=== PATIENT | male | born 1985 | race Caucasian/White ===

== ENCOUNTER 2017-05-06 05:44 | Emergency (ER) | payer BC ==
[2017-05-06] MEDS ORDERED: Sodium Chloride 0.9% 10 ML Syringe FLUSH PRN (06:06)
[2017-05-06] MEDS ORDERED: Ondansetron 4 MG/2 ML SDV IVPUSH ONE (06:06)
[2017-05-06] MEDS ORDERED: HYDROmorphone 2 MG/ML SDV IVPUSH ONE (06:07)
--- NOTE | 2017-05-06 06:13 | EDM.PDOC ---
ED HPI GENERAL MEDICAL PROBLEM - General Chief Complaint: Genitourinary Problem Stated Complaint: POSS KIDNEY STONES Time Seen by Provider: 05/06/17 05:50 Source of Information: Reports: Patient, Old Records History Limitations: Reports: No Limitations - History of Present Illness INITIAL COMMENTS - FREE TEXT/NARRATIVE: Anant reports dull L flank pain yesterday, and managed with NSAIDs. At 2 am today , he awoke with sharp colicky pain overlying L flank, with some radiation into the L groin. There was nausea and vomiting. There has been no fever, chills, or sweats. He tried more NSAIDs this am without relief. There is a remote hx of nephrolithiasis x 2 in the past. - Related Data Allergies Allergy/AdvReac Type Severity Reaction Status Date / Time grapes Allergy Hives Uncoded 05/06/17 06:44 Home Meds: Home Meds NK [No Known Home Meds] 05/06/17 [History] Past Medical History - Past Health History Medical/Surgical History: Denies Medical/Surgical History Gastrointestinal History: Reports: Cholelithiasis Genitourinary History: Reports: Renal Calculus Social & Family History - Tobacco Use Smoking Status *Q: Never Smoker - Recreational Drug Use Recreational Drug Use: No ED ROS GENERAL - Review of Systems Review Of Systems: See Below Constitutional: Reports: Decreased Appetite HEENT: Reports: No Symptoms Respiratory: Reports: No Symptoms Cardiovascular: Reports: No Symptoms Endocrine: Reports: No Symptoms GI/Abdominal: Reports: Nausea, Vomiting : Reports: Flank Pain Musculoskeletal: Reports: Back Pain Skin: Reports: No Symptoms Neurological: Reports: No Symptoms Psychiatric: Reports: No Symptoms Hematologic/Lymphatic: Reports: No Symptoms Immunologic: Reports: No Symptoms ED EXAM, RENAL/ - Physical Exam Exam: See Below Exam Limited By: No Limitations General Appearance: Alert, WD/WN, Moderate Distress Throat/Mouth: Normal Inspection, Normal Oropharynx Head: Normocephalic Neck: Supple, Non-Tender, Full Range of Motion Respiratory/Chest: Lungs Clear, Normal Breath Sounds, Chest Non-Tender Cardiovascular: Regular Rate, Rhythm GI/Abdominal: Normal Bowel Sounds, Soft, Non-Tender, No Organomegaly, No Distention, No Mass (Male) Exam: No Hernia, Normal Inspection Rectal (Males) Exam: Deferred Back Exam: Normal Inspection, Other (limited tenderness below L CVA) Extremities: Normal Inspection Neurological: Alert, Oriented, CN II-XII Intact, Normal Gait, No Motor/Sensory Deficits Psychiatric: Normal Affect, Anxious Skin Exam: Warm, Dry Lymphatic: No Adenopathy Course - Vital Signs Text/Narrative:: Following assession at the [facility] ED, an IV was inserted and NS 1L, Dilaudid 2 mg IV, and Zofran 4 mg IV was administered with resolution of sxs. Subsequent labwork confirmed gross hematura with normal kidney function, and a relapse of ureterolithiasis was made. He was administered Flomax 0.4 mg po before discharge. Last Recorded V/S: Last Vital Signs Temp 36.3 C 05/06/17 06:00 Pulse 75 05/06/17 06:00 Resp 18 05/06/17 06:00 BP 142/83 H 05/06/17 06:00 Pulse Ox 100 05/06/17 06:00 - Orders/Labs/Meds Orders: Active Orders 24 hr Category Date Time Status Sodium Chloride 0.9% [Normal Saline] 1,000 ml Med 05/06/17 06:15 Active IV ASDIRECTED Sodium Chloride 0.9% [Saline Flush] Med 05/06/17 06:06 Active 10 ml FLUSH ASDIRECTED PRN Tamsulosin [Flomax] Med 05/06/17 06:53 Once 0.4 mg PO ONETIME ONE Peripheral IV Insertion Adult [OM.PC] Routine Oth 05/06/17 06:06 Ordered Medication Orders Sodium Chloride (Normal Saline) 1,000 mls @ 500 mls/hr IV ASDIRECTED MONICO Last Admin: 05/06/17 06:27 Dose: 500 mls/hr Sodium Chloride (Saline Flush) 10 ml FLUSH ASDIRECTED PRN PRN Reason: Keep Vein Open Last Admin: 05/06/17 06:28 Dose: 10 ml Labs: Laboratory Tests 05/06/17 05/06/17 05/06/17 Range/Units 05:56 06:28 06:28 WBC 8.9 (4.5-12.0) X10-3/uL RBC 5.52 (4.30-5.75) x10(6)uL Hgb 14.4 (11.5-15.5) g/dL Hct 42.5 (30.0-51.3) % MCV 77.1 L (80-96) fL MCH 26.1 L (27.7-33.6) pg MCHC 33.9 (32.2-35.4) g/dL RDW 14.9 (11.5-15.5) % Plt Count 322 (125-369) X10(3)uL MPV 8.0 (7.4-10.4) fL Neut % (Auto) 72.4 (46-82) % Lymph % (Auto) 20.5 (13-37) % [place] % (Auto) 5.7 (4-12) % Eos % (Auto) 1 (1.0-5.0) % Baso % (Auto) 1 (0-2) % Neut # (Auto) 6.5 (1.6-8.3) # Lymph # (Auto) 1.8 (0.6-5.0) # [place] # (Auto) 0.5 (0.0-1.3) # Eos # (Auto) 0.1 (0.0-0.8) # Baso # (Auto) 0.0 (0.0-0.2) # Sodium 136 (135-145) mmol/L Potassium 3.8 (3.5-5.3) mmol/L Chloride 104 (100-110) mmol/L Carbon Dioxide 22 L (23-29) mmol/L BUN 15 (5-20) mg/dL Creatinine 1.3 (0.6-1.3) mg/dL Est Cr Clr Drug Dosing TNP Estimated GFR (MDRD) > 60 (>60) BUN/Creatinine Ratio 11.5 (9-20) Glucose 133 H (80-116) mg/dL Calcium 9.0 (8.6-10.2) mg/dL Urine Color Yellow (YELLOW) Urine Appearance Cloudy (CLEAR) Urine pH 7.0 H (5.0-6.5) Ur Specific [place] 1.015 (1.010-1.025) Urine Protein Negative (NEGATIVE) mg/dL Urine Glucose (UA) Normal (NEGATIVE) mg/dL Urine Ketones Negative (NEGATIVE) mg/dL Urine Occult Blood Large H (NEGATIVE) Urine Nitrite Negative (NEGATIVE) Urine Bilirubin Negative (NEGATIVE) Urine Urobilinogen Normal (NEGATIVE) mg/dL Ur Leukocyte Esterase Negative (NEGATIVE) Urine RBC 0-5 (0) Urine WBC >100 H (0) Ur Squamous Epith Cells Rare (NS,R,O) Urine Bacteria Moderate H (NS) Meds: Medications Generic Name Dose Route Start Last Admin Trade Name Freq PRN Reason Stop Dose Admin Sodium Chloride 1,000 mls @ 500 mls/hr 05/06/17 06:15 05/06/17 06:27 Normal Saline IV 500 mls/hr ASDIRECTED MONICO Administration Sodium Chloride 10 ml 05/06/17 06:06 05/06/17 06:28 Saline Flush FLUSH 10 ml ASDIRECTED PRN Administration Keep Vein Open Discontinued Medications Generic Name Dose Route Start Last Admin Trade Name Freq PRN Reason Stop Dose Admin Hydromorphone HCl 2 mg 05/06/17 06:07 05/06/17 06:27 Dilaudid IVPUSH 05/06/17 06:08 2 mg ONETIME ONE Administration Ondansetron HCl 4 mg 05/06/17 06:06 05/06/17 06:27 Zofran IVPUSH 05/06/17 06:07 4 mg ONETIME ONE Administration Departure - Departure Time of Disposition: 07:15 Disposition: Home, Self-Care 01 Condition: Fair Clinical Impression: Ureterolithiasis - Discharge Information Referrals: Andrés Pittman MD [Primary Care Provider] - Forms: ED Department Discharge - Problem List & Annotations (1) Ureterolithiasis SNOMED Code(s): 57834090 Code(s): N20.1 - CALCULUS OF URETER Status: Acute Current Visit: Yes Annotation/Comment:: Anant improved during ED visit, and was sent home with a strainer, advised NSAIDs for pain, and follow up with PCP this afternoon with an appt at 3 pm. - Problem List Review Problem List Initiated/Reviewed/Updated: Yes - My Orders Last 24 Hours: My Active Orders 05/06/17 06:06 Sodium Chloride 0.9% [Saline Flush] 10 ml FLUSH ASDIRECTED PRN Peripheral IV Insertion Adult [OM.PC] Routine 05/06/17 06:15 Sodium Chloride 0.9% [Normal Saline] 1,000 ml IV ASDIRECTED 05/06/17 06:53 Tamsulosin [Flomax] 0.4 mg PO ONETIME ONE - Assessment/Plan Last 24 Hours: My Active Orders 05/06/17 06:06 Sodium Chloride 0.9% [Saline Flush] 10 ml FLUSH ASDIRECTED PRN Peripheral IV Insertion Adult [OM.PC] Routine 05/06/17 06:15 Sodium Chloride 0.9% [Normal Saline] 1,000 ml IV ASDIRECTED 05/06/17 06:53 Tamsulosin [Flomax] 0.4 mg PO ONETIME ONE Plan: Follow up with PCP this afternoon.
[2017-05-06] MEDS ORDERED: Sodium Chloride 0.9% 1,000 ML IV SCH (06:15)
[2017-05-06] MEDS ORDERED: Tamsulosin 0.4 MG Cap.ER PO ONE (06:53)
[2017-05-06 07:47] VITALS: BP 111/57
[2017-05-06] MEDS ORDERED: Ondansetron 4 MG Tab.DIS PO ONE (07:54)
== END 2017-05-06 08:06 | disposition home or self-care (01) ==
LOC: FB.ED 05:44
DX: N20.1 Calculus of ureter (principal); Z91.018 Allergy to other foods
CPT/HCPCS: 36415; 80048; 81001; 85025; 96361; 96374; 96375; 99284; A9270; J1170; J2405; J7040; J7050

== ENCOUNTER 2022-12-08 19:15 | Emergency (ER) | payer BC ==
[2022-12-08] MEDS ORDERED: Sodium Chloride 0.9% 10 ML Syringe FLUSH PRN (19:30)
[2022-12-08 19:51] LABS: HEMATOCRIT 43.3 % (38.3-50.1); HEMOGLOBIN 14.7 g/dL (12.9-17.7); MEAN CORPUSCULAR HGB CONC 33.9 g/dL (28.7-35.3); MEAN CORPUSCULAR VOLUME 79.6 fL (80.8-98.7); RED BLOOD CELL COUNT 5.44 x10(6)uL (3.90-5.90); RED CELL DISTRIBUTION WIDTH 14.5 % (12.4-15.0); WHITE BLOOD CELL COUNT,WBC 10.1 x10-3/uL (3.2-10.1)
[2022-12-08 19:55] LABS: BLOOD UREA NITROGEN,BUN 14 mg/dL (7-18); CALCIUM 9.5 mg/dL (8.6-10.2); CARBON DIOXIDE,CO2 25 mmol/L (21-32); CHLORIDE,CL 104 mmol/L (100-110); CREATININE 1.4 mg/dL (0.70-1.30); ESTIMATED GFR 66 mL/min (>60); GLUCOSE RANDOM 114 mg/dL (80-116); POTASSIUM,K 3.6 mmol/L (3.5-5.3); SODIUM,NA 139 mmol/L (135-145)
[2022-12-08] MEDS: Ondansetron 4 MG/2 ML SDV IVPUSH ONE (22:35)
[2022-12-08] MEDS: Ondansetron 4 MG/2 ML SDV ONE (22:36)
[2022-12-08] MEDS: HYDROmorphone 2 MG/ML SDV IVPUSH ONE (22:37)
[2022-12-08] MEDS: Sodium Chloride 0.9% 1,000 ML IV SCH (22:38)
[2022-12-08] MEDS: HYDROmorphone 2 MG/ML SDV IM ONE (22:39)
[2022-12-08 23:26] LABS: BILIRUBIN,URINE NEGATIVE (NEGATIVE); GLUCOSE,URINE NORMAL (NORMAL); KETONES,URINE 15 mg/dL (NEGATIVE); LEUKOCYTE ESTERASE,URINE NEGATIVE (NEGATIVE); NITRITE,URINE NEGATIVE (NEGATIVE); OCCULT BLOOD,URINE LARGE (NEGATIVE); PROTEIN,URINE NEGATIVE (NEGATIVE); UROBILINOGEN,URINE NORMAL (NEGATIVE)
[2022-12-08] MEDS: Tamsulosin 0.4 MG Cap.ER PO ONE (23:27)
[2022-12-08 23:29] LABS: APPEARANCE,URINE CLOUDY (CLEAR); BACTERIA,URINE RARE (NS); COLOR,URINE YELLOW (YELLOW); SQUAMOUS EPITHELIAL CELLS,UR RARE (NS,R,O); WBC,URINE 0-5 (0-5)
[2022-12-08 23:30] LABS: AMORPHOUS SEDIMENT,URINE MANY
[2022-12-09 02:15] VITALS: BP 145/101; PULSE 83
== END 2022-12-08 23:30 | disposition home or self-care (01) ==
LOC: FB.ED 19:15
DX: N13.2 Hydronephrosis with renal and ureteral calculous obstruction (principal); Z91.018 Allergy to other foods; Z87.442 Personal history of urinary calculi
CPT/HCPCS: 36415; 74176; 80048; 81001; 85027; 96361; 96374; 96375; 99284; A9270; J1170; J2405; J7030

== ENCOUNTER 2024-05-13 04:49 | Emergency (ER) | payer OTHER ==
[2024-05-13] MEDS: HYDROmorphone 2 MG/ML SDV IVPUSH ONE (05:42)
[2024-05-13] MEDS: Sodium Chloride 0.9% 1,000 ML IV ONE (05:43)
[2024-05-13 06:18] LABS: BASOPHILS PERCENT AUTO 0.4 % (0.3-3.8); EOSINOPHILS ABSOLUTE AUTO 0.1 x10-3/uL (0.0-0.6); EOSINOPHILS PERCENT AUTO 0.7 % (0.1-6.8); HEMATOCRIT 43.6 % (38.3-50.1); HEMOGLOBIN 14.9 g/dL (12.9-17.7); LYMPHOCYTES ABSOLUTE AUTO 1.3 x10-3/uL (0.5-4.5); LYMPHOCYTES PERCENT AUTO 13.6 % (15.8-45.3); MEAN CORPUSCULAR HEMOGLOBIN 27.4 pg (27.0-33.3); MEAN CORPUSCULAR HGB CONC 34.1 g/dL (28.7-35.3); MEAN CORPUSCULAR VOLUME 80.2 fL (80.8-98.7); MEAN PLATELET VOLUME 7.8 fL (6.7-11.0); MONOCYTES ABSOLUTE AUTO 0.5 x10-3/uL (0.0-1.2); NEUTROPHILS PERCENT AUTO 80.3 % (40.3-71.8); PLATELET COUNT,PLT 267 x10(3)uL (117-477); RED BLOOD CELL COUNT 5.44 x10(6)uL (3.90-5.90); RED CELL DISTRIBUTION WIDTH 14.7 % (12.4-15.0); WHITE BLOOD CELL COUNT,WBC 9.9 x10-3/uL (3.2-10.1)
[2024-05-13 06:21] LABS: BLOOD UREA NITROGEN,BUN 14 mg/dL (7-18); BUN/CREATININE RATIO 11.7 (9-20); CALCIUM 9.1 mg/dL (8.6-10.2); CARBON DIOXIDE,CO2 28 mmol/L (21-32); CHLORIDE,CL 107 mmol/L (100-110); CREATININE 1.2 mg/dL (0.70-1.30); ESTIMATED GFR 79 mL/min (>60); POTASSIUM,K 3.9 mmol/L (3.5-5.3); SODIUM,NA 142 mmol/L (135-145)
[2024-05-13 06:27] LABS: A/G RATIO 1.2; ALANINE AMINOTRANSFERASE,ALT 28 U/L (12-36); ALBUMIN 3.9 g/dL (3.5-5.2); ALKALINE PHOSPHATASE 76 IU/L (56-112); ASPARTATE AMNIOTRANSFERASE,AST 14 IU/L (5-25); BILIRUBIN TOTAL 0.9 mg/dL (0.1-1.3); PROTEIN TOTAL,TP 7.1 g/dL (6.0-8.0)
[2024-05-13 07:08] VITALS: BP 112/65; PULSE 67
[2024-05-13 07:16] LABS: GLUCOSE RANDOM 115 mg/dL (80-116)
== END 2024-05-13 07:00 | disposition home or self-care (01) ==
LOC: FB.ED 04:49
DX: N13.2 Hydronephrosis with renal and ureteral calculous obstruction (principal); Z79.1 Long term (current) use of non-steroidal anti-inflammatories (NSAID); Z79.899 Other long term (current) drug therapy; Z91.018 Allergy to other foods
CPT/HCPCS: 36415; 80053; 85025; 96361; 96374; 99284; 99284-25; J1171; J7030